=== PATIENT | male | born 1955 | race Caucasian/White ===

== ENCOUNTER 2019-10-18 10:47 | Emergency (ER) | payer MEDICARE, OTHER ==
[2019-10-18 11:04] VITALS: BP 168/83; PULSE 90; RESP 16; TEMP 97.9
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
== END 2019-10-18 14:40 | disposition home or self-care (01) ==
LOC: EC 10:47
DX: F32.9 Major depressive disorder, single episode, unspecified (principal); F81.9 Developmental disorder of scholastic skills, unspecified
CPT/HCPCS: 82075; 99284